=== PATIENT | male | born 1980 ===

== ENCOUNTER 2019-08-16 14:41 | Emergency (ER) | payer SELFPAY ==
[~2019-08-16] VITALS: Ht 172.7 cm; Wt 82.0 kg
[2019-08-16] MEDS ORDERED: IBUPROFEN 600MG TABLET PO ONE (15:15)
[2019-08-16 15:52] VITALS: BP 130/96
== END 2019-08-16 15:53 | disposition home or self-care (01) ==
LOC: ER 14:41
DX: Z48.02 Encounter for removal of sutures (principal); R53.1 Weakness; R42 Dizziness and giddiness
CPT/HCPCS: 99283